=== PATIENT | male | born 1975 | race African-American/Black ===

== ENCOUNTER 2020-09-04 10:55 | Emergency (ER) | payer OTHER ==
[~2020-09-04] VITALS: Ht 182.9 cm; Wt 147.9 kg
[2020-09-04] MEDS ORDERED: CYCLOBENZAPRINE5 MG PO (13:07)
[2020-09-04] MEDS ORDERED: MEDROLDOSEPACK PO (13:07)
[2020-09-04] MEDS ORDERED: NORCO 10-325 T1 EACH PO (13:07)
[2020-09-04 13:30] VITALS: BP 150/98
== END 2020-09-04 13:32 | disposition home or self-care (01) ==
LOC: ER 10:55
DX: M51.26 Other intervertebral disc displacement, lumbar region (principal)